=== PATIENT | female | born 1965 | race African-American/Black ===

== ENCOUNTER 2021-01-21 15:54 | Inpatient (IN) | payer OTHER ==
[2021-01-21 18:22] LABS: BASO % 0.2 % (0-2.0); EOS % 0.4 % (0-4.5); HEMATOCRIT 27.2 % (32.4-45.2); HEMOGLOBIN 7.5 GM/dL (10.7-15.3); LYMPH % 16.8 % (8-40); MCHC 27.7 g/dl (32.0-36.0); MEAN CELL VOLUME 62.5 fl (80-96); MEAN PLT VOLUME 8.6 fl (7.5-11.1); MONO % 9.7 % (3.8-10.2); NEUT % 72.9 % (42.8-82.8); PLATELET COUNT 468 10^3/uL (134-434); RBC 4.36 M/mm3 (3.60-5.2); RDW 23.4 % (11.6-15.6); WHITE BLOOD COUNT 12.2 K/mm3 (4.0-10.0)
[2021-01-21 18:26] LABS: INR 0.98 (0.83-1.09)
[2021-01-21 18:29] LABS: ACTIVATED PTT 23.6 SECONDS (25.2-36.5)
[2021-01-21 18:35] LABS: MCH 17.3 pg (25.7-33.7)
[2021-01-21 18:42] LABS: CHLORIDE 107 mmol/L (98-107); SODIUM 142 mmol/L (136-145)
[2021-01-21 18:44] LABS: ALBUMIN 3.9 g/dl (3.4-5.0); ANION GAP 7 MMOL/L (8-16); BLOOD UREA NITROGEN 19.7 mg/dL (7-18); CO2 28 mmol/L (21-32); GLUCOSE,RANDOM 168 mg/dL (74-106); MAGNESIUM 1.7 mg/dL (1.8-2.4)
[2021-01-21 18:47] LABS: CREATININE 1.1 mg/dL (0.55-1.3); SGOT/AST 15 U/L (15-37); SGPT/ALT 42 U/L (13-61)
[2021-01-21 18:48] LABS: BILIRUBIN,TOTAL 0.3 mg/dL (0.2-1)
[2021-01-21 18:49] LABS: TOT PROT 7.1 g/dl (6.4-8.2)
[2021-01-21 18:50] LABS: ALK PHOS 111 U/L (45-117)
[2021-01-21] MEDS ORDERED: SODIUM CHLORIDE 0.9% 1000 ML INFUS.BAG IV ONE (19:06)
[2021-01-21 19:24] LABS: ANISOCYTOSIS 1+; MACROCYTOSIS 0
[2021-01-21 23:54] VITALS: BMI 30.7
[2021-01-22 09:29] LABS: BASO % 0.8 % (0-2.0); EOS % 0.6 % (0-4.5); HEMATOCRIT 22.6 % (32.4-45.2); LYMPH % 19.1 % (8-40); MEAN CELL VOLUME 60.3 fl (80-96); MEAN PLT VOLUME 8.6 fl (7.5-11.1); MONO % 9.3 % (3.8-10.2); NEUT % 70.2 % (42.8-82.8); PLATELET COUNT 383 10^3/uL (134-434); RBC 3.75 M/mm3 (3.60-5.2); RDW 22.6 % (11.6-15.6); WHITE BLOOD COUNT 9.6 K/mm3 (4.0-10.0)
[2021-01-22 09:42] LABS: MCH 17.5 pg (25.7-33.7)
[2021-01-22 09:43] LABS: HEMOGLOBIN 6.6 GM/dL (10.7-15.3)
[2021-01-22 09:55] LABS: CALCIUM 10.1 mg/dL (8.5-10.1)
[2021-01-22 09:56] LABS: ALBUMIN 3.2 g/dl (3.4-5.0); BLOOD UREA NITROGEN 15.4 mg/dL (7-18)
[2021-01-22 09:59] LABS: BILIRUBIN,TOTAL 0.3 mg/dL (0.2-1); CREATININE 0.8 mg/dL (0.55-1.3)
[2021-01-22 10:00] LABS: TOT PROT 5.9 g/dl (6.4-8.2)
[2021-01-22] MEDS ORDERED: IRON SUCROSE INJECTION 200 MG in SODIUM CHLORIDE 90 ML IVPB ONE (10:13)
[2021-01-22] MEDS: PANTOPRAZOLE 40 MG TABLET PO SCH (11:58)
[2021-01-22 13:58] LABS: RETICULOCYTES 3.37 % (0.5-1.5)
[2021-01-22] MEDS: POTASSIUM CHLORIDE 10 MEQ in SODIUM CHLORIDE 0.45% 1,000 ML IVPB SCH (18:31)
[2021-01-22 20:56] LABS: BASO % 0.5 % (0-2.0); EOS % 0.6 % (0-4.5); HEMATOCRIT 27.1 % (32.4-45.2); HEMOGLOBIN 8.3 GM/dL (10.7-15.3); LYMPH % 13.1 % (8-40); MCHC 30.7 g/dl (32.0-36.0); MEAN CELL VOLUME 63.9 fl (80-96); MEAN PLT VOLUME 8.3 fl (7.5-11.1); NEUT % 73.8 % (42.8-82.8); PLATELET COUNT 362 10^3/uL (134-434); RBC 4.24 M/mm3 (3.60-5.2); WHITE BLOOD COUNT 11.3 K/mm3 (4.0-10.0)
[2021-01-22 21:03] LABS: MCH 19.6 pg (25.7-33.7)
[2021-01-23] MEDS: POTASSIUM CHLORIDE 10 MEQ in SODIUM CHLORIDE 0.45% 1,000 ML IVPB SCH (05:09)
[2021-01-23 08:09] LABS: PARATHYROID HORM INTACT 6 pg/mL (15-65)
[2021-01-23] MEDS ORDERED: IRON SUCROSE INJECTION 200 MG in SODIUM CHLORIDE 90 ML IVPB ONE (09:00)
[2021-01-23 09:57] LABS: BASO % 0.5 % (0-2.0); EOS % 0.7 % (0-4.5); HEMATOCRIT 32.5 % (32.4-45.2); HEMOGLOBIN 9.7 GM/dL (10.7-15.3); LYMPH % 15.1 % (8-40); MCH 20.4 pg (25.7-33.7); MCHC 29.9 g/dl (32.0-36.0); MEAN PLT VOLUME 9.1 fl (7.5-11.1); MONO % 9.4 % (3.8-10.2); NEUT % 74.3 % (42.8-82.8); PLATELET COUNT 377 10^3/uL (134-434); RBC 4.78 M/mm3 (3.60-5.2); RDW 27.4 % (11.6-15.6); WHITE BLOOD COUNT 11.1 K/mm3 (4.0-10.0)
[2021-01-23] MEDS ORDERED: PT OWN MED DRAWER 7, Y5N ONE (10:13)
[2021-01-23 10:18] LABS: ALBUMIN 3.6 g/dl (3.4-5.0); CALCIUM 9.8 mg/dL (8.5-10.1)
[2021-01-23 10:19] LABS: BLOOD UREA NITROGEN 11.8 mg/dL (7-18)
[2021-01-23] MEDS: PANTOPRAZOLE 40 MG TABLET PO SCH (10:19)
[2021-01-23 10:23] LABS: BILIRUBIN,TOTAL 0.2 mg/dL (0.2-1); TOT PROT 6.7 g/dl (6.4-8.2)
[2021-01-23] MEDS ORDERED: POTASSIUM CHLORIDE TABS 20 MEQ TABLET.ER (FP) PO ONE (14:56)
[2021-01-23 15:33] VITALS: BP 147/80; PULSE 65; TEMP 97.8
[2021-01-25 21:06] LABS: GLIADIN ANTIBODY IGA 3 units (0-19); GLIADIN ANTIBODY IGG 3 units (0-19); TRANSGLUTAMINASE IGG < 2 U/mL (0-5)
[2021-01-26 17:07] LABS: FREE KAPPA,SERUM 21.4 mg/L (3.3-19.4)
== END 2021-01-23 17:51 | disposition left against medical advice (07) | DRG 812 ==
LOC: JER 15:54 → JERBED 19:05 → J8W 23:16
PROVIDERS: ADMIT Internal Medicine; ATTEND Family Medicine
DX: D50.9 Iron deficiency anemia, unspecified (principal); E11.9 Type 2 diabetes mellitus without complications; I10 Essential (primary) hypertension; E03.9 Hypothyroidism, unspecified; E83.52 Hypercalcemia; K21.9 Gastro-esophageal reflux disease without esophagitis; Z79.84 Long term (current) use of oral hypoglycemic drugs; E05.90 Thyrotoxicosis, unspecified without thyrotoxic crisis or storm; Z53.29 Procedure and treatment not carried out because of patient's decision for other reasons
CPT/HCPCS: 36415; 36430; 71046-TC-FY; 74019-TC-FY; 80048; 80053; 82550; 82728; 82784; 83010; 83516; 83540; 83550; 83615; 83735; 83883; 83970; 84155; 84165; 84484; 85025; 85045; 85610; 85730; 86850; 86900; 86901; 86922; 87045; 87046; 87177; 87205; 87209; 87324; 87449; 93005; 93010; 99285-25; C9803; J1756; P9058; U0003; U0005

== ENCOUNTER 2021-01-25 10:44 | Emergency (ER) | payer OTHER ==
[2021-01-25 11:53] VITALS: TEMP 98.1; BMI 30.7
[2021-01-25 13:29] LABS: BASO % 0.3 % (0-2.0); EOS % 0.2 % (0-4.5); HEMOGLOBIN 10.9 GM/dL (10.7-15.3); LYMPH % 7.8 % (8-40); MCH 20.8 pg (25.7-33.7); MCHC 30.2 g/dl (32.0-36.0); MEAN CELL VOLUME 68.8 fl (80-96); MEAN PLT VOLUME 8.7 fl (7.5-11.1); MONO % 7.1 % (3.8-10.2); NEUT % 84.6 % (42.8-82.8); PLATELET COUNT 453 10^3/uL (134-434); RBC 5.24 M/mm3 (3.60-5.2); RDW 27.8 % (11.6-15.6)
[2021-01-25 13:50] LABS: CHLORIDE 110 mmol/L (98-107); SODIUM 145 mmol/L (136-145)
[2021-01-25 13:52] LABS: CALCIUM 10.2 mg/dL (8.5-10.1)
[2021-01-25 13:53] LABS: ANION GAP 8 MMOL/L (8-16); BLOOD UREA NITROGEN 15.2 mg/dL (7-18); CO2 27 mmol/L (21-32); GLUCOSE,RANDOM 260 mg/dL (74-106)
[2021-01-25 13:56] LABS: CREATININE 1.1 mg/dL (0.55-1.3); SGOT/AST 45 U/L (15-37); SGPT/ALT 90 U/L (13-61)
[2021-01-25 13:57] LABS: BILIRUBIN,TOTAL 0.3 mg/dL (0.2-1); TOT PROT 7.4 g/dl (6.4-8.2)
[2021-01-25 13:58] VITALS: BP 152/90; PULSE 87
[2021-01-25 13:59] LABS: ALK PHOS 142 U/L (45-117)
[2021-01-25 14:43] LABS: MAGNESIUM 1.7 mg/dL (1.8-2.4)
[2021-01-25 15:39] LABS: ANISOCYTOSIS 3+; MACROCYTOSIS 0; PLATELET ESTIMATE NORMAL; TARGET CELLS 2+
== END 2021-01-25 15:03 | disposition home or self-care (01) ==
LOC: JER 10:44
DX: D64.9 Anemia, unspecified (principal)
CPT/HCPCS: 36415; 71046-TC-FY; 80053; 82272; 83735; 84484; 85025; 86850; 86900; 86901; 93005; 93010; 99285-25; C9803; U0003; U0005